=== PATIENT | male | born 1990 | race Caucasian/White ===

== ENCOUNTER 2024-01-26 11:36 | Emergency (ER) | payer SELFPAY ==
[~2024-01-26] VITALS: Ht 180.3 cm; Wt 79.0 kg
[~2024-01-26 11:36] MED LIST: HYDROCORTISO2.51 RE; no meds
[2024-01-26] MEDS ORDERED: LIDOcaine HCl 1% (Local Anesth.) 20 ML VIAL STI STA (11:50)
[2024-01-26] MEDS ORDERED: POVIDONE IODINE 0.5 OZ/BTL TOP STA (11:50)
[2024-01-26] MEDS ORDERED: BACTRIM DS1 TAB PO (12:02)
[2024-01-26] MEDS ORDERED: CEPHALEXIN500 M1 PO (12:02)
[2024-01-26 12:22] VITALS: BP 127/84
== END 2024-01-26 12:38 | disposition home or self-care (01) | DRG 603 ==
LOC: ED 11:36
PROC: 0H9EXZZ Drainage of Left Lower Arm Skin, External Approach (ICD-10-PCS; principal; 2024-01-26)
DX: L02.414 Cutaneous abscess of left upper limb (principal)